=== PATIENT | female | born 1995 | race Caucasian/White ===

== ENCOUNTER 2023-11-11 21:02 | Emergency (ER) | payer SELFPAY ==
[~2023-11-11] VITALS: Ht 172.7 cm; Wt 68.0 kg
[2023-11-11 21:02] VITALS: O2SAT 99
== END 2023-11-11 21:43 | disposition left against medical advice (07) ==
LOC: ER 21:05
DX: O26.891 Other specified pregnancy related conditions, first trimester (principal); Z3A.11 11 weeks gestation of pregnancy; V89.2XXA Person injured in unspecified motor-vehicle accident, traffic, initial encounter; Y93.89 Activity, other specified; Y92.488 Other paved roadways as the place of occurrence of the external cause; Y99.8 Other external cause status
CPT/HCPCS: A4606; A4663